=== PATIENT | male | born 1955 | race Hispanic/Latino ===

== ENCOUNTER 2019-06-07 09:11 | Emergency (ER) | payer OTHER, SELFPAY ==
--- OUTSIDE RECORDS SUMMARY | 2019-06-07 09:12 | XMS REPORT ---
:1955 [facility] Address [address] [place] [address] [address]. [address] [place] [address] Care Team Providers Name Role Phone Unavailable Unavailable Unavailable Problems This patient has no known problems. Allergies, Adverse Reactions, Alerts This patient has no known allergies or adverse reactions. Medications This patient has no known medications. Encounters Start End Encounter Admission Attending Care Care Encounter Date/Time Date/Time Type Type Clinicians Facility Department ID 2017-04-15 Inpatient [facility] [id number] 08:13:52 2017-04-14 Inpatient [facility] [id number] 00:00:00 2017-04-14 Inpatient [facility] [id number] 00:00:00 2017-04-13 Inpatient [facility] [id number] 11:06:51 2017-04-11 Inpatient [facility] [id number] 00:13:43 2017-04-09 Inpatient [facility] [id number] 11:45:17 2017-04-09 Inpatient [facility] [id number] 10:31:07 2017-04-09 Inpatient [facility] [id number] 00:00:00 2017-04-09 Inpatient [facility] [id number] 00:00:00 2017-05-16 2017-05-16 Outpatient [facility] [id number] 12:03:03 12:03:03 2017-04-11 2017-04-11 Inpatient [facility] [id number] 18:23:41 00:00:00 2017-04-08 2017-04-08 Inpatient [facility] [id number] 16:56:25 16:56:25 2017-04-08 2017-04-08 Emergency [facility] [id number] 16:36:53 16:36:53
[2019-06-07 09:44] LABS: Urine Blood 2+ (NEG); Urine Glucose NEGATIVE (NEG); Urine Protein 1+ (NEG); Urine pH 6.5 (5.0-7.0)
[2019-06-07] MEDS ORDERED: levoFLOXacin 750 MG TAB ONE (09:56)
[2019-06-07] MEDS ORDERED: TAMSULOSIN 0.4 MG SR CAP ONE (09:57)
[2019-06-07] MEDS ORDERED: CEFTRIAXONE 1000 MG/VIAL ONE (09:57)
[2019-06-07] MEDS ORDERED: WATER FOR INJ,STERILE 10 ML ONE (09:57)
--- NOTE | 2019-06-07 10:03 | ER ---
Nurse's Notes [facility] Name: Fuad Avila Age: 63 yrs Sex: Male : 1955 Arrival Date: 06/07/2019 Time: 09:15 Bed 20 Private MD: Sae Vale Diagnosis: Urinary tract infection, site not specified;Dysuria Presentation: 06/07 09:24 Presenting complaint: Patient states: burning with urination, frequency and urgency ss that began 2 days ago. Denies fever. Transition of care: patient was not received from another setting of care. Onset of symptoms was June 05, 2019. Risk Assessment: Do you want to hurt yourself or someone else? Patient reports no desire to harm self or others. Initial Sepsis Screen: Does the patient meet any 2 criteria? HR > 90 bpm. Does the patient have a suspected source of infection? No. Patient's initial sepsis screen is negative. Care prior to arrival: None. 09:24 Method Of Arrival: Ambulatory ss 09:24 Acuity: FRANNIE 4 ss Historical: - Allergies: 09:26 No Known Allergies; ss - Home Meds: 09:26 unknown cholesterol medication [Active]; ss - PMHx: 09:26 Pancreatitis; High Cholesterol; ss - PSHx: 09:26 Cholecystectomy; ss - Immunization history:: Adult Immunizations up to date. - Social history:: Smoking status: Patient/guardian denies using tobacco. - Ebola Screening: : Patient denies exposure to infectious person Patient denies travel to an Ebola-affected area in the 21 days before illness onset. Screenin:00 Abuse screen: Denies threats or abuse. Denies injuries from another. Nutritional ph screening: No deficits noted. Tuberculosis screening: No symptoms or risk factors identified. Fall Risk None identified. Assessment: 09:45 General: Appears in no apparent distress. comfortable, well groomed, Behavior is calm, ph cooperative, appropriate for age, Denies fever, feeling ill. Pain: Complains of pain in suprapubic area. Neuro: Level of Consciousness is awake, alert, obeys commands, Oriented to person, place, time, situation. Cardiovascular: Capillary refill < 3 seconds in bilateral fingers Patient's skin is warm and dry. Respiratory: Airway is patent Respiratory effort is even, unlabored. GI: Patient currently denies diarrhea, nausea, vomiting. : Reports burning with urination, pain in suprapubic area urinary frequency. Derm: Skin is intact, is healthy with good turgor, Skin is pink, warm \T\ dry. Musculoskeletal: Circulation, motion, and sensation intact. Range of motion:. 10:04 Reassessment: D/C pending 15 min shot time. ph Vital Signs: 09:26 BP 142 / 69; Pulse 101; Resp 16; Temp 98.3(O); Pulse Ox 97% on R/A; Height 6 ft. 0 in. ss (182.88 cm); Pain 0/10; 10:05 BP 138 / 78; Pulse 97; Resp 18; Temp 98.1; Pulse Ox 98% on R/A; ph ED Course: 09:15 Patient arrived in ED. mr 09:15 Sae Vale MD is Private Physician. mr 09:19 Luis Gould MD is Attending Physician. derek 09:25 Triage completed. ss 09:26 Arm band placed on right wrist. ss 09:38 Urine Culture Sent. [facility] 09:39 Patient has correct armband on for positive identification. Bed in low position. Call mh5 light in reach. Side rails up X 1. Adult w/ patient. Warm blanket given. Pulse ox on. NIBP on. 09:39 Urine collected: clean catch specimen, cloudy, Bladder scan completed. [facility] 09:43 Sae Vale MD is Referral Physician. [facility] 09:43 Romero Vann MD is Referral Physician. derek 09:48 Violetta Hodges, RN is Primary Nurse. ph 10:53 No provider procedures requiring assistance completed. Patient did not have IV access ss during this emergency room visit. Administered Medications: 10:03 Drug: LevOfloxacin 750 mg Route: PO; ph 10:30 Follow up: Response: No adverse reaction ph 10:03 Drug: Flomax 0.4 mg Route: PO; ph 10:30 Follow up: Response: No adverse reaction ph 10:03 Drug: Rocephin (cefTRIAXone) 1 grams Route: IM; Site: right gluteus; ph 10:30 Follow up: Response: No adverse reaction ph Outcome: 09:43 Discharge ordered by . derek 10:53 Discharged to home ambulatory, with family. ss 10:53 Condition: good 10:53 Discharge instructions given to patient, family, Instructed on discharge instructions, follow up and referral plans. medication usage, Demonstrated understanding of instructions, follow-up care, medications, Prescriptions given X 2. 10:53 Patient left the ED. Addendum: 06/10/2019 09:20 Addendum: Culture Results: Positive urine culture. No further action required. Bacteria i w sensitive to prescribed antibiotic. Signatures: Luis Gould MD MD cha Rivera, Mary mr Chayito Perez RN RN Jen Lucas RN RN Violetta Hodges RN RN [place] [id number]
--- NOTE | 2019-06-07 10:04 | EDPHYS ---
Physician Documentation [facility] Name: Fuad Avila Age: 63 yrs Sex: Male : 1955 Arrival Date: 06/07/2019 Time: 09:15 Bed 20 Private MD: Sae Vale ED Physician Luis Gould HPI: 06/07 09:36 This 63 yrs old Male presents to ER via Ambulatory with complaints of Urinary derek Problem. 09:36 The patient presents with urinary symptoms, frequency, incontinence, urgency, urinary derek retention. Onset: The symptoms/episode began/occurred 3 day(s) ago. Modifying factors: The symptoms are alleviated by nothing, the symptoms are aggravated by pressure. Historical: - Allergies: 09:26 No Known Allergies; ss - Home Meds: 09:26 unknown cholesterol medication [Active]; ss - PMHx: 09:26 Pancreatitis; High Cholesterol; ss - PSHx: 09:26 Cholecystectomy; ss - Immunization history:: Adult Immunizations up to date. - Social history:: Smoking status: Patient/guardian denies using tobacco. - Ebola Screening: : Patient denies exposure to infectious person Patient denies travel to an Ebola-affected area in the 21 days before illness onset. ROS: 09:38 Constitutional: Negative for fever, chills, and weight loss, Eyes: Negative for injury, derek pain, redness, and discharge, ENT: Negative for injury, pain, and discharge, Neck: Negative for injury, pain, and swelling, Cardiovascular: Negative for chest pain, palpitations, and edema, Respiratory: Negative for shortness of breath, cough, wheezing, and pleuritic chest pain, Abdomen/GI: Negative for abdominal pain, nausea, vomiting, diarrhea, and constipation, Back: Negative for injury and pain, MS/Extremity: Negative for injury and deformity, Skin: Negative for injury, rash, and discoloration, Neuro: Negative for headache, weakness, numbness, tingling, and seizure, Psych: Negative for depression, anxiety, suicide ideation, homicidal ideation, and hallucinations, Allergy/Immunology: Negative for hives, rash, and allergies, Endocrine: Negative for neck swelling, polydipsia, polyuria, polyphagia, and marked weight changes, Hematologic/Lymphatic: Negative for swollen nodes, abnormal bleeding, and unusual bruising. 09:38 : Positive for urinary symptoms, urinary frequency, small amounts, hematuria. Exam: 09:38 Constitutional: This is a well developed, well nourished patient who is awake, alert, derek and in no acute distress. Head/Face: Normocephalic, atraumatic. Eyes: Pupils equal round and reactive to light, extra-ocular motions intact. Lids and lashes normal. Conjunctiva and sclera are non-icteric and not injected. Cornea within normal limits. Periorbital areas with no swelling, redness, or edema. ENT: Nares patent. No nasal discharge, no septal abnormalities noted. Tympanic membranes are normal and external auditory canals are clear. Oropharynx with no redness, swelling, or masses, exudates, or evidence of obstruction, uvula midline. Mucous membranes moist. Neck: Trachea midline, no thyromegaly or masses palpated, and no cervical lymphadenopathy. Supple, full range of motion without nuchal rigidity, or vertebral point tenderness. No Meningismus. Chest/axilla: Normal chest wall appearance and motion. Nontender with no deformity. No lesions are appreciated. Cardiovascular: Regular rate and rhythm with a normal S1 and S2. No gallops, murmurs, or rubs. Normal PMI, no JVD. No pulse deficits. Respiratory: Lungs have equal breath sounds bilaterally, clear to auscultation and percussion. No rales, rhonchi or wheezes noted. No increased work of breathing, no retractions or nasal flaring. Back: No spinal tenderness. No costovertebral tenderness. Full range of motion. Skin: Warm, dry with normal turgor. Normal color with no rashes, no lesions, and no evidence of cellulitis. MS/ Extremity: Pulses equal, no cyanosis. Neurovascular intact. Full, normal range of motion. Neuro: Awake and alert, GCS 15, oriented to person, place, time, and situation. Cranial nerves II-XII grossly intact. Motor strength 5/5 in all extremities. Sensory grossly intact. Cerebellar exam normal. Normal gait. Psych: Awake, alert, with orientation to person, place and time. Behavior, mood, and affect are within normal limits. 09:38 Abdomen/GI: Inspection: abdomen appears normal, Bowel sounds: normal, Palpation: mild abdominal tenderness, in the suprapubic area, Liver: no appreciated palpable abnormalities, Hernia: not appreciated. Vital Signs: 09:26 BP 142 / 69; Pulse 101; Resp 16; Temp 98.3(O); Pulse Ox 97% on R/A; Height 6 ft. 0 in. (182.88 cm); Pain 0/10; 10:05 BP 138 / 78; Pulse 97; Resp 18; Temp 98.1; Pulse Ox 98% on R/A; ph MDM: 09:19 Patient medically screened. [facility] 09:39 Data reviewed: vital signs, nurses notes, lab test result(s), urinalysis, bacteruria, derek leuko, nit positive. 06/07 09:28 Order name: Urine Culture 06/07 09:37 Order name: Urine Dipstick--Ancillary (enter results) ut 06/07 09:47 Order name: Urine Dipstick-Ancillary EDWA 06/07 09:28 Order name: Urine Dipstick-Ancillary (obtain specimen); Complete Time: 09:38 06/07 09:35 Order name: Bladder Scanner: pvr; Complete Time: 09:48 [facility] Administered Medications: 10:03 Drug: LevOfloxacin 750 mg Route: PO; ph 10:30 Follow up: Response: No adverse reaction ph 10:03 Drug: Flomax 0.4 mg Route: PO; ph 10:30 Follow up: Response: No adverse reaction ph 10:03 Drug: Rocephin (cefTRIAXone) 1 grams Route: IM; Site: right gluteus; ph 10:30 Follow up: Response: No adverse reaction ph Disposition: 06/07/19 09:43 Discharged to Home. Impression: Urinary tract infection, site not specified, Dysuria. - Condition is Stable. - Discharge Instructions: Dysuria, Prostatitis, Urinary Tract Infection, Adult, Urinary Tract Infection, Adult, [id number], Prostatitis, [id number]-[id number]. - Prescriptions for Levaquin 500 mg Oral Tablet - take 1 tablet by ORAL route once daily for 14 days; 14 tablet. Flomax 0.4 mg Oral Capsule, Sust. Release 24 hr - take 1 capsule by ORAL route once daily 1/2 hour following the same meal each day; 15 capsule. - Medication Reconciliation Form, Thank You Letter, Antibiotic Education, Prescription Opioid Use form. - Follow up: Sae Vale; When: 2 - 3 days; Reason: Recheck today's complaints, Continuance of care, Re-evaluation by your physician. Follow up: Romero Vann; When: 2 - 3 days; Reason: Recheck today's complaints, Continuance of care, Re-evaluation by your physician. - Problem is new. - Symptoms have improved. Signatures: Dispatcher [employer] EDWA Luis Gould MD MD cha Smirch, Shelby, RN RN ss Violetta Hodges RN RN ph Corrections: (The following items were deleted from the chart) 10:53 09:43 06/07/2019 09:43 Discharged to Home. Impression: Urinary tract infection, site ss not specified; Dysuria. Condition is Stable. Discharge Instructions: Dysuria, Prostatitis, Urinary Tract Infection, Adult, Urinary Tract Infection, Adult, Wrav-by-Lzjf, Prostatitis, [id number]. Prescriptions for Levaquin 500 mg Oral Tablet - take 1 tablet by ORAL route once daily for 14 days; 14 tablet, Flomax 0.4 mg Oral Capsule, Sust. Release 24 hr - take 1 capsule by ORAL route once daily 1/2 hour following the same meal each day; 15 capsule. and Forms are Medication Reconciliation Form, Thank You Letter, Antibiotic Education, Prescription Opioid Use. Follow up: Sae Vale; When: 2 - 3 days; Reason: Recheck today's complaints, Continuance of care, Re-evaluation by your physician. Follow up: Romero Vann; When: 2 - 3 days; Reason: Recheck today's complaints, Continuance of care, Re-evaluation by your physician. Problem is new. Symptoms have improved. derek
[2019-06-07 10:59] VITALS: BP 138/78; TEMP 98.1; O2SAT 98
== END 2019-06-07 10:53 | disposition home or self-care (01) ==
LOC: ER 09:11
DX: N39.0 Urinary tract infection, site not specified (principal); R30.0 Dysuria
CPT/HCPCS: 81003; 87077; 87086; 87088; 87186; 96372; 99284

== ENCOUNTER 2022-05-16 07:10 | Day surgery (SDC) | payer MEDICARE, OTHER ==
[2022-05-10 14:43] LABS: Specific Gravity 1.024 (1.005-1.030); Urine Bilirubin NEGATIVE (Negative); Urine Blood Negative (Negative); Urine Clarity Clear (Clear); Urine Color Yellow (Yellow); Urine Glucose NEGATIVE (Negative); Urine Protein NEGATIVE (Negative); Urine Urobilinogen 1+ (Normal)
[2022-05-10 14:43] LABS: Protime INR 0.99
[2022-05-10 14:44] LABS: Absolute Lymphocytes (CBC) 1.5 K/uL (0.7-4.9); Hematocrit 43.3 % (39.6-49.0); Lymphocytes % 31.8 % (15.3-44.8); MCV 96.5 fL (80-100); MPV 10.5 fL (7.6-11.3); RBC Red Blood Cell Count 4.49 M/uL (4.33-5.43)
--- NOTE | 2022-05-10 14:48 | RAD REPORT ---
EXAM DESCRIPTION: RAD - Chest Pa And Lat (2 Views) - 05/10/2022 2:27 pm CLINICAL HISTORY: Pre op pending urolift COMPARISON: None TECHNIQUE: Frontal and lateral views of the chest were obtained. FINDINGS: The lungs are clear of acute infiltrate or suspicious mass. Small granuloma seen in the up per right lung field. Interstitial pattern is mildly prominent presentation believed be baseline. No failure or volume overload. Heart size is normal and central vasculature is within normal limits. No pleural effusion or pneu mothorax seen. No acute bone finding. Patient has prominent degenerative endplate spurring and bridg ing ossification in the thoracic spine. No aortic abnormality. IMPRESSION: No acute cardiopulmonary process.
[2022-05-10 14:58] LABS: Potassium 4.6 mmol/L (3.5-5.1)
--- NOTE | 2022-05-11 16:01 | EKG ---
Test Date: 2022-05-10 Test Time: 14:14:00 Punch Press Setter: LIANA MEASUREMENT RESULTS: Intervals: Rate: 61 MO: 150 QRSD: 72 QT: 388 QTc: 390 [place]: P: 64 MO: 150 QRS: -6 T: 65 INTERPRETIVE STATEMENTS: Normal sinus rhythm Normal ECG Compared to ECG 01/22/2017 14:20:35 No significant changes Electronically Signed On 05-11-22 16:00:17 FACTORY MACHINE COMPUTER OPERATOR by Julio Cesar eNgrete
[2022-05-16] MEDS ORDERED: CEFAZOLIN SODIUM 2 GM/VIAL ONE (07:39)
[2022-05-16] MEDS ORDERED: NA CHLORIDE 0.9% 1,000 ML ONE ×2 (07:39→12:10)
[2022-05-16] MEDS ORDERED: LIDOCAINE 1% MPF 5 ML VIAL ONE (08:39)
[2022-05-16] MEDS ORDERED: propofoL 200 MG/20 ML VIAL IV ONE ×2 (08:39→09:19)
[2022-05-16] MEDS ORDERED: FENTANYL CITR 100 MCG/2 ML ONE ×2 (08:39→09:21)
[2022-05-16] MEDS ORDERED: PHENAZOPYRIDINE 100MG TAB PO ONE ×2 (08:48→11:29)
[2022-05-16] MEDS ORDERED: NS 0.9% VIAL 10 ML ONE (08:48)
[2022-05-16] MEDS ORDERED: HYDROCODONE/APAP 5/325 MG TAB PO PRN (08:48)
[2022-05-16] MEDS ORDERED: KETOROLAC 30 MG/ML INJ ONE (09:02)
[2022-05-16] MEDS ORDERED: ONDANSETRON 4 MG/2 ML VIAL ONE (09:17)
[2022-05-16 11:01] VITALS: O2SAT 100
[2022-05-16] MEDS ORDERED: HYDROCODONE/APAP 5/325 MG TAB ONE (11:29)
[2022-05-16 13:25] VITALS: TEMP 98
[2022-05-16 13:30] VITALS: BP 133/60
--- NOTE | 2022-05-16 19:44 | OP ---
Surgeon: NKECHI BARNES Preoperative Diagnoses: 1.Benign prostatic hypertrophy with lower urinary tract obstruction and symptoms. 2.Complicated urinary tract infection. Postoperative Diagnoses: 1.Benign prostatic hypertrophy with lower urinary tract obstruction and symptoms. 2.Complicated urinary tract infection. Principal Procedure: Prostatic urethral lift/UroLift with 7 implants used and 5 successfully placed. Indication For Procedure: Mr. Avila is a 66-year-old gentleman who presented with obstructive ur inary symptoms, managed on Flomax plus finasteride. Despite this, he had a complicated UTI with epid idymitis that was treated and he underwent a biopsy of the prostate, which was negative for malignanc y. As a result, because of the complicated infection that occurred despite maximal medical therapy f or his obstruction, he underwent evaluation and was recommended for surgical treatment and was felt t o be a good candidate for the UroLift. Procedure In Detail: The patient was consented in the preoperative holding area before being transfe rred to operative suite where general anesthesia was induced. He was given Ancef 2 g IV antimicrobia l prophylaxis and Pneumoboots were provided for DVT prophylaxis. He was placed in the lithotomy posi tion and padded and secured to the table appropriately. His genitalia were prepped with Hibiclens an d he was draped in standard fashion. The case was begun using the 20-Brazilian UroLift sheath and visua l obturator to traverse the urethra and into the bladder with relative ease. The prostatic urethral channel was surveyed on the way in, and there was notable kissing and slightly interdigitating latera l lobar hypertrophy with a slight elevation of the bladder neck without significant intravesical proj ection. The bladder was entered and decompressed off fluid and urine, and there were no obvious muco aj lesions, foreign bodies, or stones. The first implant site was selected in the bladder neck sandi on on the left side. Approximately 1.5 cm distal to the bladder neck anterolaterally at about the 11 o'clock position, the scope was angled about 10 degrees touching the tissue and the first pull of th e trigger was performed deploying the needle with a capsular tab through the prostate. Additional co mpression was then achieved to complete delivery of the needle to the outside of the prostate and ens ure capsular seeding of the capsular tab with the second pull of the trigger. A third pull of the tr igger was then performed to tension the suture and the monofilament against the prostate, and then I angled the scope back towards the midline and advanced it approximately 2-3 mm, but just inside the b ladder neck before pulling the trigger the fourth time and delivering the implant to the mucosal surf dino of the prostate. The implant did seat about 0.5 cm inside of the bladder neck very nicely embedd ed and invaginated within the tissue in that location. I then readvanced the UroLift delivery device back into his bladder and removed the device while decompressing the bladder. I switched the delive ry device for a new implant and again selected a second implant delivery site within the right bladde r neck region of his prostate. Choosing a similar position, approximately 1.5-2 cm distal to the sunny dder neck on the right side at around 11 o'clock, the tissue was touched at about 10 degrees angle an d again the needle was delivered with the first pull of the trigger. Additional decompression was th en performed delivering the needle all the way through the capsular surface of the prostate before th e capsular tab was seated and the monofilament slack was then tensioned. After the third pull, I had angled the scope back towards the midline and advanced the scope forward approximately 2-3 mm lookin g for the white line, but it never did appear. Since I was at the junction with the bladder neck at this point, and no white line was seen, I backed the scope up to the level of the implant delivery an d again advanced it forward looking for the white line. Unfortunately, no white line was visible; so within the lip of the bladder neck, the fourth trigger pull was performed and did deliver an implant to the luminal surface of the prostate. Unfortunately, this implant was not tensioned ideally and t hus ended up right at the junction of the bladder neck, subsequently needing to be removed. I then r eadvanced the UroLift delivery device back into the bladder and substituted it for a third implant de danishay device. This was then placed in a similar fashion at the apex of the prostate and at the leve l of the verumontanum on the left side. A fourth implant was similarly placed at the apex at the lev el of the verumontanum on the right side. Survey of the channel using the visual shaper operator did reveal a nice anterior channel that was slightly circuitous and angling to the right when heading towards t he bladder neck. There was additionally some residual apical tissue intruding into the prostatic ure thral lumen from the left side in the mid gland of the prostate. As a result, a fifth implant was pl aced in that region. We also attempted to place a sixth implant this time on the right side at the b ladder neck, but had a similar issue this time with the capsular tab pulling through the prostate and thus failing to seat properly. As a result, a seventh implant was required in that bladder neck reg ion on the right side and this time was successfully placed in ideal position. As a result, in the e nd, there was a continuous anterior channel visible from the verumontanum in through the bladder neck with a total of 5 implants successfully placed, 2 on the right side and 3 on the left side, and 2 ad ditional implants that either pulled through or had to be removed. This was a total of 7 implants us ed and 5 successfully placed. The patient was then taken out of the lithotomy position after a 20-Fr ench urethral Melton catheter was placed into his bladder with ease and the draining urine was light p ink. He was then transferred to a stretcher and then transferred to the recovery room in good condit ion. Complications: None. Discharge Disposition: He will be standard UroLift pathway and be given a voiding trial today prior to discharge from the PACU with subsequent followup to be established in about 1 month's time. CAMILLA/ANGELLA Voice ID: [id number] Report ID: [id number]
== END 2022-05-16 13:00 | disposition home or self-care (01) ==
LOC: OR 07:10
PROVIDERS: ATTEND Urology
PROC: 0T7D8DZ Dilation of Urethra with Intraluminal Device, Via Natural or Artificial Opening Endoscopic (ICD-10-PCS; principal; 2022-05-16 08:30)
DX: N40.1 Benign prostatic hyperplasia with lower urinary tract symptoms (principal); R97.20 Elevated prostate specific antigen [PSA]; Z87.440 Personal history of urinary (tract) infections
CPT/HCPCS: 93005; 85025; 80048; 36415; 85610; 82947 ×2; 81003; 71046; 52441; 52442 ×4; J2704 ×2; J2001; J3010 ×2; A4216; J7030 ×2; J2405